=== PATIENT | male | born 1935 | race Asian ===

== ENCOUNTER 2020-07-07 00:29 | Emergency (ER) | payer OTHER ==
[~2020-07-07] VITALS: Ht 165.1 cm; Wt 76.9 kg
[2020-07-07 01:04] LABS: EOSINOPHILS % (AUTO) 5.4 % (1.0-6.0); HEMATOCRIT 29.3 % (41-53); HEMOGLOBIN 9.6 g/dL (13.5-17.5); LYMPHOCYTES % (AUTO) 17.9 % (22.0-44.0); MEAN CORPUSCULAR HEMOGLOBIN 35.2 pg (26.0-34.0); MEAN CORPUSCULAR HGB CONC 32.9 G/dL (31.0-37.0); MEAN CORPUSCULAR VOLUME 107 fL (80-100); MONOCYTES % (AUTO) 7.5 % (2.0-9.0); NEUTROPHILS % (AUTO) 68.2 % (40.0-70.0); PLATELET COUNT (AUTO) 111 K/uL (150-450); RED BLOOD CELL COUNT(AUTO) 2.74 MIL/uL (4.50-5.90); RED CELL DISTRIBUTION WIDTH 15.1 % (11.5-14.5)
[2020-07-07] MEDS ORDERED: LORA-999 PO (01:17)
[2020-07-07] MEDS ORDERED: POTA8TAB71 PO (01:17)
[2020-07-07] MEDS ORDERED: PIOG30TA10 PO (01:17)
[2020-07-07] MEDS ORDERED: SIMV-261 PO (01:17)
[2020-07-07] MEDS ORDERED: METO25 PO (01:17)
[2020-07-07] MEDS ORDERED: QUET25TA PO (01:17)
[2020-07-07 01:23] LABS: LYMPHOCYTES # (AUTO) 0.8 K/uL (1.0-4.8); NEUTROPHILS # (AUTO) 3.2 K/uL (1.8-7.7)
[2020-07-07 01:24] LABS: MONOCYTES # (AUTO) 0.4 K/uL (0.1-1.0)
[2020-07-07 01:30] LABS: ALANINE AMINOTRANSFERASE 21 U/L (12-78); ALBUMIN 3.7 g/dL (3.4-5.0); ALKALINE PHOSPHATASE 94 U/L (46-116); ANION GAP 9 mmol/L (8-16); ASPARTATE AMINOTRANSFERASE 21 U/L (15-37); BILIRUBIN,TOTAL 0.3 mg/dL (0.1-1.0); CALCIUM, TOTAL 9.2 mg/dL (8.8-10.5); CARBON DIOXIDE 24 mmol/L (22-29); CHLORIDE 100 mmol/L (98-107); CREATININE 3.33 mg/dL (0.60-1.30); FREE T4 (FREE THYROXINE) 1.08 ng/dL (0.76-1.46); GLOMERULAR FILTR. RATE CALC 18 mL/min (>60); POTASSIUM 4.9 mmol/L (3.5-5.1); SODIUM SERUM 133 mmol/L (136-145); THYROID STIMULATING HORMONE 1.33 uIU/mL (0.36-3.74); TOTAL PROTEIN, SERUM 7.6 g/dL (6.4-8.2); UREA NITROGEN, BLOOD 49 mg/dL (7-18)
[2020-07-07 01:36] LABS: GLUCOSE,RANDOM 492 mg/dL (70-110)
[2020-07-07 02:52] LABS: APPEARANCE,URINE CLEAR (CLEAR); BILIRUBIN,URINE NEGATIVE (NEGATIVE); GLUCOSE, URINE (UA) >=1000 mg/dL (NEGATIVE); KETONES,URINE NEGATIVE (NEGATIVE); LEUKOCYTE ESTERASE ,URINE NEGATIVE (NEGATIVE); NITRATE,URINE NEGATIVE (NEGATIVE); OCCULT BLOOD,URINE NEGATIVE (NEGATIVE); PH,URINE 6.5 (5.0-8.0); PROTEIN,URINE TRACE (NEGATIVE); UROBILINOGEN,URINE 0.2 mg/dL (<=1.0)
[2020-07-07 02:58] LABS: AMPHET/METH SCREEN,URINE NEGATIVE (NEGATIVE); BARBITURATE SCREEN, URINE NEGATIVE (NEGATIVE); BENZODIAZEPINES SCREEN,URINE NEGATIVE (NEGATIVE); CANNABINOID SCREEN,URINE NEGATIVE (NEGATIVE); COCAINE SCREEN,URINE NEGATIVE (NEGATIVE); METHADONE SCREEN, URINE NEGATIVE (NEGATIVE); OPIATE SCREEN,URINE NEGATIVE (NEGATIVE)
[2020-07-07 02:59] LABS: PHENCYCLIDINE SCREEN,URINE NEGATIVE (NEGATIVE)
[2020-07-07 03:01] LABS: BACTERIA,URINE None Seen /HPF (None Seen); RBC,URINE None Seen /HPF (0-2); SQUAMOUS EPITHELIAL CELL,UR None Seen /LPF (None Seen); WBC,URINE None Seen /HPF (0-5)
[2020-07-07] MEDS ORDERED: SODIUM CHLORIDE 0.9% 1,000 ML IV ONE (03:15)
[2020-07-07] MEDS ORDERED: 0.9% SODIUM CHLORIDE 10 ML SYRINGE IVP PRN (03:30)
[2020-07-07] MEDS ORDERED: QUEtiapine FUMARATE 25 MG TABLET PO ONE (03:30)
[2020-07-07] MEDS ORDERED: ONDANSETRON HCL 4 MG/2 ML VIAL IVP PRN (03:30)
[2020-07-07] MEDS ORDERED: ACETAMINOPHEN 325 MG TABLET PO PRN (03:30)
[2020-07-07] MEDS: PIOGLITAZONE HCL 30 MG TABLET PO ONE ×2 (05:20→05:58)
[2020-07-07] MEDS ORDERED: LORazepam 0.5 MG TABLET PO ONE (06:00)
[2020-07-07] MEDS ORDERED: INSULIN LISPRO 100 UNITS/ML SQ ONE (06:15)
[2020-07-07] MEDS ORDERED: LORazepam 1 MG TABLET PO ONE (06:15)
[2020-07-07 07:58] VITALS: BP 167/93
[2020-07-08 10:47] LABS: GLUCOSE,POINT OF CARE 469 MG/DL (70-110)
== END 2020-07-07 07:59 | disposition short-term general hospital (02) ==
LOC: EDUNIT# 00:29 → EMS 00:30 → UNDOADMIN 03:23 → 6S 03:23 → EMS 07:59
DX: F03.90 Unspecified dementia, unspecified severity, without behavioral disturbance, psychotic disturbance, mood disturbance, and anxiety (principal); R41.0 Disorientation, unspecified; E11.65 Type 2 diabetes mellitus with hyperglycemia; R79.89 Other specified abnormal findings of blood chemistry; E78.00 Pure hypercholesterolemia, unspecified; I10 Essential (primary) hypertension; Z79.899 Other long term (current) drug therapy
CPT/HCPCS: 36415; 70450; 80053; 80307; 81001; 82962; 84439; 84443; 85025; 96360; 96372; 99285; G0480; J7030; J1815